=== PATIENT | female | born 1950 | race Caucasian/White ===

== ENCOUNTER 2017-08-24 19:59 | Observation (INO) | payer MEDICARE ==
[2017-08-24 21:11] LABS: #Eosinphils 0.1 thou/uL (0.0-0.7); #Lymphocytes 1.3 thou/uL (1.20-3.40); #Monocytes 0.7 thou/uL (0.11-0.59); #Neutrophils 8.3 thou/uL (1.40-6.50); %Basophils 0.3 % (0.0-1.0); %Eosinophils 0.7 % (0.0-10.0); %Lymphocytes 12.2 % (21.0-51.0); %Monocytes 6.6 % (0.0-10.0); %Neutrophils 80.3 % (42.0-75.0); Hemoglobin 14.3 g/dL (12.0-16.0); Mean Corpuscular HGB CONC 34.5 g/dL (32.0-36.0); Mean Corpuscular Hemoglobin 32.4 pg (27.0-31.0); Mean Corpuscular Volume 93.9 fl (81.0-99.0); Mean Platelet Volume 6.6 fL (7.4-10.4); Platelet Count 241 thou/uL (130-400); Red Blood Cell (RBC) Count 4.42 mill/uL (4.20-5.40); White Blood Cell (WBC) Count 10.3 thou/uL (4.8-10.8)
[2017-08-24 21:17] LABS: INR-International Normal Ratio 1.1; PTT 26.4 SEC (22.9-36.1); Prothrombin Time 14.1 SEC (12.0-14.7)
[2017-08-24 21:34] LABS: Acetaminophen Less than 6.0 mcg/mL (10.0-30.0); Alcohol 14 mg/dL (Less than 10); Salicylate Less than 8.0 mg/dL (15.0-30.0)
[2017-08-24 21:36] LABS: CKMB 1.5 ng/mL (0-6.6); Troponin I 0.023 ng/mL (< 0.028)
[2017-08-24 21:42] LABS: ALT (SGPT) 11 U/L (8-55); AST (SGOT) 15 U/L (5-34); Albumin 4.3 g/dL (3.4-4.8); Alkaline Phosphatase 95 U/L (40-150); Anion Gap 14 mmol/L (10-20); BUN (Urea Nitrogen) 17 mg/dL (9.8-20.1); Bilirubin, Total 0.3 mg/dL (0.2-1.2); Calc. Creatinine Clearance 0 mL/min (70-130); Calcium 9.8 mg/dL (7.8-10.44); Carbon Dioxide 28 mmol/L (23-31); Chloride 100 mmol/L (98-107); Estimated GFR-MDRD 65; Globulin 3.2 g/dL (2.4-3.5); Glucose 99 mg/dL (80-115); Potassium 3.5 mmol/L (3.5-5.1); Protein, Total 7.5 g/dL (6.0-8.3); Sodium 138 mmol/L (136-145)
[2017-08-24 22:16] LABS: Bilirubin Negative (Negative); Blood, Urine Negative (Negative); Clarity CLEAR (Clear); Glucose, Urine (Dipstick) Negative (Negative); Leukocyte Negative (Negative); Nitrite Negative (Negative); Protein, Urine (Dipstick) Trace mg/dL (Neg-Trace); Specific Gravity, Urine 1.021 (1.002-1.036)
[2017-08-24 22:25] LABS: Amphetamine Not Detected (NotDetected); Barbiturates Screen Not Detected (NotDetected); Benzodiazepine Screen Not Detected (NotDetected); Cocaine Metabolite Screen Not Detected (NotDetected); Medtox Control Line Valid? VALID (VALID); Medtox Reader # READER 4; Methadone Not Detected (NotDetected); Methamphetamine Not Detected (NotDetected); Opiate Screen Not Detected (NotDetected); Oxycodone Screen Not Detected (NotDetected); Phencyclidine (PCP) Not Detected (NotDetected); THC/Cannabinoid Screen Not Detected (NotDetected); Tricyclic Screen Not Detected (NotDetected)
--- NOTE | 2017-08-24 23:18 | CT ---
BRAIN CT WITHOUT IV CONTRAST: 08/24/17 HISTORY: 67-year-old female with history of right sided weakness. There is marked bilateral fairly diffuse chronic white matter ischemic changes bilaterally including the basal ganglia and centrum semiovale regions. No focal mass or midline shift. No intra or extra-ax ial hemorrhage. Sinuses and mastoid are clear. IMPRESSION: Very severe bilateral chronic white matter ischemic changes including some lacunar infarct changes. N o mass or bleed or other significant acute process. No old studies. POS: ROCÍO
[2017-08-25 01:04] LABS: Troponin I 0.023 ng/mL (< 0.028)
[2017-08-25] MEDS ORDERED: Ondansetron HCl/PF 4 MG/2 ML Vial IVP PRN (02:06)
[2017-08-25] MEDS ORDERED: Ondansetron ODT 4 MG TAB SL PRN (02:06)
[2017-08-25] MEDS ORDERED: Acetaminophen 325 MG TAB PO PRN (02:06)
[2017-08-25 02:30] VITALS: BMI 28.6
[2017-08-25 04:58] LABS: Troponin I 0.028 ng/mL (< 0.028)
[2017-08-25] MEDS ORDERED: Milk Of Magnesia 30 ML UDCUP PO PRN (07:19)
[2017-08-25 08:02] LABS: Cardiac Risk 2.8 (Less than 4.5)
[2017-08-25] MEDS ORDERED: Aspirin 325 MG TAB PO SCH (09:00)
[2017-08-25] MEDS ORDERED: Heparin 5,000 UNITS/ML VIAL SC SCH (09:00)
[2017-08-25] MEDS ORDERED: Atorvastatin Calcium 40 MG TAB PO SCH (09:00)
[2017-08-25] MEDS ORDERED: Docusate 100 MG CAP PO SCH (09:00)
[2017-08-25 15:52] VITALS: BP 140/85; TEMP 98
[2017-08-25] MEDS ORDERED: Lisinopril 20 MG TAB PO SCH (21:00)
--- NOTE | 2017-08-26 08:17 | HP ---
PRIMARY CARE PHYSICIAN: Unknown. PRESENTING COMPLAINT: Weakness. HISTORY OF PRESENT ILLNESS: Ms. 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 She was brought to the emergency room this morning after she had an i ncident while having dinner with her family. She reports that she was having a dinner at [facility] and she had 1 Lynnette with her meal and then the coffee. She reported feeling "different" and then seem like she passed out. From ER notes, they reported she would not speak to them and seem ed glazed over. She had complains of nausea before and also had difficulty raising her right arm. E MS was called and by the time EMS arrived, she was able to move her arm. She denies chest pain, shor tness of breath, palpitation, nausea, vomiting, or diarrhea. No reported slurring of speech or facia l droop. She reports having a similar episode in 2017 and workup was essentially negative. Then, sh e had a CT scan, MRI, and echocardiogram with no new findings. PAST MEDICAL HISTORY: As stated in the HPI. PAST SURGICAL HISTORY: CABG, hysterectomy, and tonsillectomy. SOCIAL HISTORY: Drinks alcohol occasionally. Former smoker, quit in 2014. Does not use illicit sivan gs. FAMILY HISTORY: Father had a history of OR and hypertension. Mother had hypertension and hyperlipid emia. ALLERGIES: None. REVIEW OF SYSTEMS: Constitutional: Negative. HEENT: Negative. Cardiovascular: Negative. Respiratory: Negative. Gastrointestinal: Positive for nausea, otherwise negative. Genitourinary: Negative. Musculoskeletal: Negative. Skin: Negative. Neurologic: Positive for confusion and right-sided weakness. No dizziness, headache, or loss of con sciousness. Hematologic/lymphatic: Negative. Allergy/immunologic: Negative. Psychiatric: Negative. PHYSICAL EXAMINATION: VITAL SIGNS: On arrival in the hospital, temperature 97.9 degree Fahrenheit, pulse rate 75, respirat ory 16, oxygen saturation 98% on room air, blood pressure 158/79. GENERAL: Not in acute distress, sitting comfortably in bed. HEENT: Normocephalic, atraumatic. Not pale, anicteric. Moist mucous membranes. PERRLA, EOMI. NECK: Supple, full range of movement. No JVD. RESPIRATORY: Vesicular breath sounds bilaterally. No wheezes or rales. CARDIOVASCULAR: Regular rate and rhythm, S1 and S2 only. No murmurs, rubs or gallops. ABDOMEN: Soft, nontender, nondistended. Bowel sounds normoactive. No hepatosplenomegaly. PSYCHIATRIC: Alert and well oriented to time, place and person. Has residual speech deficits and di fficulty expressing herself, which she states is chronic. Strength 5/5 in bilateral extremities. Re flexes normal. PSYCHIATRIC: Normal mood and affect. SKIN: Warm and dry. No rashes or lesions. MUSCULOSKELETAL: No edema. ASSESSMENT AND PLAN: 1. Transient ischemic attack, concern for a new stroke as the patient has a history of multiple cere brovascular accidents in the past with residual deficits. Her CT brain here in the hospital was nega tive. EKG showed no acute ischemia and labs were all unremarkable. She seems to have returned to he r baseline, but she is being admitted as a precaution to be monitored on telemetry. Neurology will e valuate the patient. We will also get lipid profile, PT/OT and speech language pathology to evaluate . She will also be made n.p.o. until i am sure she can tolerate orally. She might require an MRI an d repeat echocardiogram, but will hold for now due to her extensive workups in the past with similar presentation and we will defer to Neurology for this. 2. Coronary artery disease, status post coronary artery bypass graft. She is symptom free. She juliette l be resumed on her home medications when able to tolerate orally. She takes aspirin, atorvastatin, lisinopril, and Plavix. 3. Hypertension. Blood pressure relatively well controlled. She will be resumed on a home regimen of amlodipine and lisinopril. 4. Hyperlipidemia. We will resume atorvastatin. 5. History of cerebrovascular accident. She reports 2 cerebrovascular accidents in the past, one in 2004 and another in 2016 with residual speech deficits. We will resume aspirin, lisinopril, and Niki vix once confirmed. CODE STATUS: FULL CODE. PROPHYLAXIS: Subcutaneous heparin.
[2017-08-26] MEDS ORDERED: Amlodipine 5 MG TAB PO SCH (09:00)
[2017-08-26] MEDS ORDERED: Clopidogrel Bisulfate 75 MG TAB PO SCH (09:00)
--- NOTE | 2017-08-26 13:57 | DIS ---
A 67-year-old female who was admitted earlier today for an episode of confusion and right extremity w eakness which has resolved. The patient is back to her baseline now and she reports that she feels f ine and would like to go home. She has an appointment with her primary care physician and will follo w up with Neurology on outpatient basis. Her workup here was unremarkable. The patient insists on b eing discharged today. H&P was done earlier. For further information, please kindly refer to today' s H and P.
--- NOTE | 2017-08-28 00:27 | EKG ---
Test Reason : Blood Pressure : / mmHG Vent. Rate : 064 BPM Atrial Rate : 064 BPM P-R Int : 152 ms QRS Dur : 134 ms QT Int : 454 ms P-R-T Axes : 028 -11 117 degrees QTc Int : 468 ms Sinus rhythm with occasional Premature ventricular complexes Right bundle branch block T wave abnormality, consider lateral ischemia Abnormal ECG Confirmed by VONDA KESSLER ([id number]), city editor LIAM WYNN ([id number] on 08/28/2017 12:25:33 AM Referred By: Confirmed By:VONDA KESSLER
== END 2017-08-25 16:52 | disposition home or self-care (01) ==
LOC: ERS 19:59 → 2SE 23:10
PROVIDERS: ADMIT Internal Medicine; ATTEND Internal Medicine
DX: I25.10 Atherosclerotic heart disease of native coronary artery without angina pectoris; Z82.49 Family history of ischemic heart disease and other diseases of the circulatory system; Z95.1 Presence of aortocoronary bypass graft; R41.0 Disorientation, unspecified; Z87.891 Personal history of nicotine dependence; Z86.73 Personal history of transient ischemic attack (TIA), and cerebral infarction without residual deficits; I69.328 Other speech and language deficits following cerebral infarction; I25.2 Old myocardial infarction; Z95.5 Presence of coronary angioplasty implant and graft; I10 Essential (primary) hypertension; R29.898 Other symptoms and signs involving the musculoskeletal system; E78.5 Hyperlipidemia, unspecified
CPT/HCPCS: 70450; 80053; 80061; 80306; 80307; 81003; 82553; 84484 ×2; 85025; 85610; 85730; 93005; 97110; 97139; 99285; G0378; G8978; G8979; G8980; 36415; G8996-GN-CH; G8997-GN-CH; G8998-GN-CH; J1644